=== PATIENT | male | born 1950 | race Caucasian/White ===

== ENCOUNTER 2017-11-14 06:40 | Observation (INO) ==
[2017-11-14] MEDS ORDERED: 0.9 % Sodium Chloride 1,000 ML IVC ONE (06:52)
[2017-11-14] MEDS ORDERED: Dexamethasone 4 MG/ML VIAL IVP ONE (06:52)
[2017-11-14 07:06] LABS: Basophils % 0.3 %; Eosinophils # 0.3 K/mcL (0.0-0.6); Eosinophils % 4.1 %; Immature Granulocytes % 0.5 % (0-4); Lymphocytes # 1.5 K/mcL (0.6-4.6); Lymphocytes % 23.5 %; Mean Corpuscular HGB Conc 34.7 g/dL (31.6-35.5); Mean Corpuscular Hemoglobin 33.4 pg (28.0-33.3); Mean Corpuscular Volume 96.3 fL (83.0-100.0); Mean Platelet Volume 8.6 fL (9.4-12.4); Monocytes # 0.6 K/mcL (0.0-1.3); Monocytes % 8.7 %; Neutrophils # 4.1 K/mcL (1.6-8.9); Platelet Count 233 K/mcL (140-400); Red Blood Count 5.09 M/mcL (4.19-5.50); Red Cell Distribution Width 13.5 % (11.5-14.5); Segmented Neutrophils % 62.9 %
[2017-11-14 07:31] LABS: BUN/Creatinine Ratio 20 (6-26); Blood Urea Nitrogen 24 mg/dL (8-23); Calcium 8.8 mg/dL (8.6-10.3); Carbon Dioxide 25 mEq/L (23-29); Chloride 106 mEq/L (98-107); Glucose 90 mg/dL (70-105); Osmolality,Calculated 286 (280-300); Sodium 136 mEq/L (136-145); Troponin I < 0.03 ng/mL (< 0.04); eGFR For Non-African Americans 59 (> 60)
--- NOTE | 2017-11-14 07:43 | Emergency Department Note ---
Disposition Clinical Impression: Angio-edema Qualifiers: Encounter type: initial encounter Qualified Code(s): T78.3XXA - Angioneurotic edema, initial encounter Disposition: Admitted As Inpatient Condition: Good Referrals: Rivka Chung CNP [Primary Care Provider] - Gabriel Mac [Family Provider] - Forms: ED Satisfaction Letter, Work/School Release Time of Disposition: 07:58 Allergic Reaction HPI - General Chief complaint: ED General Medical Stated complaint: "Swollen Tounge/Poss.Allergic Reaction" Time Seen by Provider: 11/14/17 06:52 Source: patient, family () Mode of arrival: ambulatory Limitations: no limitations Nursing Notes Reviewed: Yes Vital Signs Reviewed: Yes - History of Present Illness HPI Narrative: 67-year-old male history of hypertension presents emergency department was swollen tongue. He reports waken up around 4 o'clock this morning with a sensation on his right side of his tongue. He realizes right side of the tongue was swollen. He denies any difficulty swallowing or difficulty breathing. This is never happened before. He does take lisinopril and over the past month it was increased from 10 to 20 mg due to uncontrolled hypertension. He has been taken lisinopril for over the past 5 years. He denies any recent dental procedures. Denies any recent illness. Has not eaten or drinking anything this morning. He typically takes his lisinopril in the morning his last dose was over 24 hours ago, yesterday morning. No new foods or drinks. No new medications. Currently he is able to speak in full sentences with a slight muffled voice. It has not changed since being here. Pt Subjective Complaint: allergic reaction - Related Data Allergies Allergy/AdvReac Type Severity Reaction Status Date / Time No Known Allergies Allergy Verified 11/14/17 06:41 All systems ED: reviewed and negative except as stated. Review of Systems: As Per HPI Constitutional: Denies: fever, chills ENT ED: Reports: dysphagia. Denies: throat pain, dental pain Cardiovascular: Denies: chest pain Respiratory: Denies: dyspnea Gastrointestinal: Denies: abdominal pain, nausea, vomiting Past Medical History - Past Medical History Attestation: Yes The following information was validated with the patient. Source: patient Medical history: Reports: hypertension Psychiatric history: Reports: no psych history - Social History Smoking Status: Never smoker Alcohol use: Reports: none Drug use: Reports: none Physical Exam - General Limitations: no limitations General appearance: alert, in no apparent distress - Head Head exam: atraumatic, normocephalic, normal inspection - Eye Eye exam: Present: normal appearance, PERRL, EOMI. Absent: periorbital swelling - ENT ENT exam: normal exam, normal oropharynx, mucous membranes moist - Expanded ENT Exam External ear exam: Present: normal external inspection Nose exam: negative: rhinorrhea Mouth exam: Present: tongue elevation, tounge swelling (Asymmetrical right side swelling). Absent: drooling, trismus Teeth exam: Present: normal inspection, dental caries, other (No false teeth her dentures) - Neck Neck exam: Present: normal inspection, full ROM, trachea midline. Absent: tenderness, thyromegaly - Expanded Neck Exam Neck exam focused ED: Absent: anterior neck swelling - Chest Chest inspection: Present: normal inspection, symmetric chest wall rise - Respiratory Respiratory exam: Present: normal lung sounds bilaterally. Absent: respiratory distress, wheezes, stridor - Cardiovascular Cardiovascular exam: Present: regular rate, normal rhythm, normal heart sounds - Abdominal Exam Abdominal exam: Present: soft, Non-Tender. Absent: tenderness, distention, guarding, rebound, rigidity - Extremities Exam Extremities exam: Present: normal inspection, full ROM, normal capillary refill. Absent: tenderness, pedal edema - Neurological Exam Neurological exam: Present: alert, oriented X3 - Expanded Neurological Exam Patient oriented to: Present: person, place, time Coma Scale Eye Opening: Spontaneous Coma Scale Motor Response: Obeys Commands Coma Scale Verbal Response: Oriented Coma Scale Total: 15 - Psychiatric Psychiatric exam: Present: normal affect, normal mood - Skin Skin exam: Present: warm, dry, intact, normal color. Absent: rash, cyanosis, diaphoresis, erythema - Expanded Skin Exam Description: Absent: urticarial Course Course Narrative: Patient presents with concern for angioedema as he has tongue swelling and is on a DEUCE inhibitor. No prior history. He is on cardiac monitoring and continuous pulse oximetry. Good oxygen saturations. His airways intact at this time. He has been given Benadryl and steroids. We will continue to monitor him for any airway compromise check some labs and consult ENT for likely admission and observation. Impression is angioedema. - Consultations Consultation #1: Patient has been accepted for admission by the plug overwrap machine tender Dr. Khoury for angioedema and difficult airway. On reevaluation he continues to have good control of his secretions. Oxygen saturation remains in the upper 90s. He appears in no acute distress. No strider wheezing. No indication for intubation at this time. ENT, Dr. Dirk Tarango, has been consulted and is on board and aware the patient's admission. Time: 08:04 Vital Signs Temperature 97.6 F 11/14/17 06:41 Pulse Rate 55 11/14/17 06:41 Respiratory Rate 18 11/14/17 06:41 Blood Pressure 186/101 11/14/17 06:41 O2 Sat by Pulse Oximetry 96 11/14/17 06:41 Temperature 97.6 F 11/14/17 06:41 Pulse Rate 55 11/14/17 06:41 Respiratory Rate 18 11/14/17 06:41 Blood Pressure 186/101 11/14/17 06:41 O2 Sat by Pulse Oximetry 96 11/14/17 06:41 Oxygen Delivery Oxygen Delivery Room Air Allergic Reaction - MDM Narrative Medical decision making narrative: Patient was discussed with my attending physician who agrees with ED management and final disposition. They independently evaluated the patient. Please refer to their attestation to this encounter for additional information. This note was generated by [employer] voice recognition software and as a result grammatical or spelling errors may occur using this program. - Differential Diagnosis Differential Diagnosis: Likely: allergic reaction, angioedema - Medical Records Medical records reviewed: Yes I reviewed the patient's medical records. - Lab Data Lab results reviewed: Yes I reviewed the patient's lab results. Result diagrams: 11/14/17 06:57 11/14/17 06:57 Lab Results 11/14/17 11/14/17 11/14/17 Range/Units 06:57 06:57 06:57 WBC 6.6 (4.3-11.1) K/mcL RBC 5.09 (4.19-5.50) M/mcL Hgb 17.0 H (12.9-16.9) g/dL Hct 49.0 (37.5-50.1) % MCV 96.3 (83.0-100.0) fL MCH 33.4 H (28.0-33.3) pg MCHC 34.7 (31.6-35.5) g/dL RDW 13.5 (11.5-14.5) % Plt Count 233 (140-400) K/mcL MPV 8.6 L (9.4-12.4) fL Immature Gran % 0.5 (0-4) % Seg Neutrophils % 62.9 % Lymphocytes % 23.5 % Monocytes % 8.7 % Eosinophils % 4.1 % Basophils % 0.3 % Neutrophils # 4.1 (1.6-8.9) K/mcL Lymphocytes # 1.5 (0.6-4.6) K/mcL Monocytes # 0.6 (0.0-1.3) K/mcL Eosinophils # 0.3 (0.0-0.6) K/mcL Basophils # 0.0 (0.0-0.2) K/mcL Sodium 136 (136-145) mEq/L Potassium 4.0 (3.5-5.1) mEq/L Chloride 106 (98-107) mEq/L Carbon Dioxide 25 (23-29) mEq/L BUN 24 H (8-23) mg/dL Creatinine 1.23 (0.70-1.30) mg/dL Est GFR ( Amer) > 60 (> 60) Est GFR (Non-Af Amer) 59 L (> 60) BUN/Creatinine Ratio 20 (6-26) Glucose 90 (70-105) mg/dL Calculated Osmolality 286 (280-300) Calcium 8.8 (8.6-10.3) mg/dL Troponin I < 0.03 (< 0.04) ng/mL B-Natriuretic Peptide 38 (Less than 100) pg/mL - Radiology Data Radiology results reviewed: Yes I reviewed the patient's radiology results. Chest X-Ray 11/14/17 06:53 IMPRESSION: Trace left basilar airspace disease, favored to represent atelectasis. Mild cardiomegaly. D/ / Fabricio Sarmiento MD / Fabricio Sarmiento MD Interpreting Provider: Fabricio Sarmiento MD
--- NOTE | 2017-11-14 07:44 | Emergency Department Note ---
Disposition Clinical Impression: Angio-edema Qualifiers: Encounter type: initial encounter Qualified Code(s): T78.3XXA - Angioneurotic edema, initial encounter Disposition: Admitted As Inpatient Condition: Good Referrals: Rivka Chung CNP [Primary Care Provider] - Gabriel Mac [Family Provider] - Forms: ED Satisfaction Letter, Work/School Release Time of Disposition: 07:45 General Adult HPI - General Chief complaint: ED General Medical Stated complaint: "Swollen Tounge/Poss.Allergic Reaction" Time Seen by Provider: 11/14/17 06:52 Source: patient Limitations: no limitations - History of Present Illness Pain Scale: 0 - Related Data Allergies Allergy/AdvReac Type Severity Reaction Status Date / Time No Known Allergies Allergy Verified 11/14/17 06:41 Past Medical History - Past Medical History Medical history: Reports: hypertension Psychiatric history: Reports: no psych history - Social History Smoking Status: Never smoker Alcohol use: Reports: none Drug use: Reports: none Physical Exam - General Limitations: no limitations General appearance: alert Course Vital Signs Temperature 97.6 F 11/14/17 06:41 Pulse Rate 55 11/14/17 06:41 Respiratory Rate 18 11/14/17 06:41 Blood Pressure 186/101 11/14/17 06:41 O2 Sat by Pulse Oximetry 96 11/14/17 06:41 Temperature 97.6 F 11/14/17 06:41 Pulse Rate 55 11/14/17 06:41 Respiratory Rate 18 11/14/17 06:41 Blood Pressure 186/101 11/14/17 06:41 O2 Sat by Pulse Oximetry 96 11/14/17 06:41 Oxygen Delivery Oxygen Delivery Room Air Medical Decision Making - Lab Data Result diagrams: 11/14/17 06:57 11/14/17 06:57 Lab Results 11/14/17 11/14/17 11/14/17 Range/Units 06:57 06:57 06:57 WBC 6.6 (4.3-11.1) K/mcL RBC 5.09 (4.19-5.50) M/mcL Hgb 17.0 H (12.9-16.9) g/dL Hct 49.0 (37.5-50.1) % MCV 96.3 (83.0-100.0) fL MCH 33.4 H (28.0-33.3) pg MCHC 34.7 (31.6-35.5) g/dL RDW 13.5 (11.5-14.5) % Plt Count 233 (140-400) K/mcL MPV 8.6 L (9.4-12.4) fL Immature Gran % 0.5 (0-4) % Seg Neutrophils % 62.9 % Lymphocytes % 23.5 % Monocytes % 8.7 % Eosinophils % 4.1 % Basophils % 0.3 % Neutrophils # 4.1 (1.6-8.9) K/mcL Lymphocytes # 1.5 (0.6-4.6) K/mcL Monocytes # 0.6 (0.0-1.3) K/mcL Eosinophils # 0.3 (0.0-0.6) K/mcL Basophils # 0.0 (0.0-0.2) K/mcL Sodium 136 (136-145) mEq/L Potassium 4.0 (3.5-5.1) mEq/L Chloride 106 (98-107) mEq/L Carbon Dioxide 25 (23-29) mEq/L BUN 24 H (8-23) mg/dL Creatinine 1.23 (0.70-1.30) mg/dL Est GFR ( Amer) > 60 (> 60) Est GFR (Non-Af Amer) 59 L (> 60) BUN/Creatinine Ratio 20 (6-26) Glucose 90 (70-105) mg/dL Calculated Osmolality 286 (280-300) Calcium 8.8 (8.6-10.3) mg/dL Troponin I < 0.03 (< 0.04) ng/mL B-Natriuretic Peptide 38 (Less than 100) pg/mL Attestation Statement - Attestation Attestation: I examined this patient and my medical decision-making was reviewed with the Resident Physician. I agree with the documented findings, disposition and treatment plan as described except to the extent set forth below. 67 year old male presents to the ED with complaints of right sided tongue swelling. Reynaldo is currenlty on lisinopril and most recently increased his dose and then started to notice increased in swelling in his right side of the tongue without evidenc of difficulty in breathing, hives, or vomitting. WE will consult with ENT and then admit to medicnie. Reynaldo was accepted as sign out from night team (Yovany/Wan)
[2017-11-14] MEDS ORDERED: Naloxone 0.4 MG/ML INJ IVP PRN (08:40)
[2017-11-14] MEDS ORDERED: 0.9 % Sodium Chloride 1,000 ML IVC SCH (08:45)
--- NOTE | 2017-11-14 11:21 | Pulmonology History & Physical ---
<BalajimalloryBear Soliz - Last Filed: 11/14/17 11:19> Date of Encounter: 11/14/17 Time of Encounter: 11:19 Assessment and Plan (1) Angio-edema Current visit: Yes Status: Acute Likely secondary to DEUCE inhibitor use. Edema is isolated to the right side of the tongue only. No facial swelling or lip swelling noted. Oropharynx is patent, patient is maintaining his airway and handling his secretions without difficulty. Patient has adequate oxygenation on room air. DEUCE inhibitor will be discontinued permanently. We will treat with Solu-Medrol 40mg every 6h, famotidine 20 mg twice a day, Benadryl 50 mg every 8 hours. We will monitor closely in the ICU to monitor his airway status in case his angioedema regresses and the need for urgent airway protection becomes necessary. ENT was been consulted from the emergency department with pressure the recommendations. I spoke with the patient at length and made it clear that he should avoid all DEUCE inhibitor's and our medications in the future Qualifiers: Encounter type: initial encounter Qualified Code(s): T78.3XXA - Angioneurotic edema, initial encounter (2) Hypertension Current visit: Yes Status: Acute Had been on lisinopril 20 mg daily. This is being discontinued due to angioedema as discussed above. Patient is currently nothing by mouth due to concerns for developing airway compromise so we will treat with hydralazine 10 milligrams every 6 when necessary. Once patient is able to take by mouth medications will transition to by mouth antihypertensives. Encourage outpatient follow-up. Qualifiers: Hypertension type: essential hypertension Qualified Code(s): I10 - Essential (primary) hypertension (3) DVT prophylaxis Current visit: Yes Status: Acute Lovenox 40 mg subcutaneous daily. History of Present Illness Chief complaint: Tongue swelling HPI: Mr. Tejada is a 67 year old male with history of hypertension who presents with tongue swelling. He states he was awoken from sleep at approximately 4 AM with swelling of the right side of his tongue. He reports that this progressed over the next couple hours and this caused him to present to the emergency department. He states he has never had anything like this before. He had no issues last night before going to bed. He feels like he is having trouble controlling his saliva somewhat but denies any difficulty breathing, drooling. Patient states lisinopril on a daily basis and recently had his dose increased to 20 mg. He states he has been on this for approximately 5 years. Denies any other previous episodes of facial swelling. He denies any other swelling including any other facial swelling, no lip swelling, eye swelling. He has fever, chills, cough, congestion, chest pain, headache, confusion, abdominal pain, nausea, vomiting, diarrhea, dysuria. Past Med Surg Social Fam HX - Past Medical History Medical history: hypertension Psychiatric history: no psych history - Past Surgical History Additional surgical history: back sx, - Social History Smoking Status: Never smoker Alcohol use: none Drug use: none Medications and Allergies Lisinopril [Zestril] 20 mg PO DAILY 11/14/17 [History] 3 Allergy/AdvReac Type Severity Reaction Status Date / Time DEUCE Inhibitors Allergy Severe Swelling Verified 11/14/17 14:31 of Lip/Tongue/Throat All Systems: The remainder of the systems were reviewed and are negative - Constitutional Constitutional: no chills, no fever(s) - EENT Nose, mouth and throat: tongue swelling, no epistaxis, no facial pain, no nasal congestion, no nasal discharge, no neck pain, no sinus pressure, no throat swelling - Cardiovascular Cardiovascular: no chest pain, no dyspnea, no edema - Respiratory Respiratory: no cough, no dyspnea, no dyspnea on exertion, no stridor, no pain on inspirtation, no chest congestion, no excessive phlegm production, no change in phlegm color - Gastrointestinal Gastrointestinal: no abdominal pain, no diarrhea, no nausea, no vomiting - Genitourinary Genitourinary: no dysuria - Musculoskeletal Musculoskeletal: no weakness, no numbness, no stiffness - Neurological Neurological: no numbness, no syncope, no tingling - Hematologic/Lymphatic Hematologic/Lymphatic: no easy bleeding, no easy bruising - Allergic/Immunologic Allergic/Immunologic: tongue swelling, no throat swelling, no itchy eyes, no seasonal rhinorrhea, no uticaria, no wheezing, no GI upset with certain foods, no lip swelling Physical Examination Vital Signs: Vital Signs, Last 4 Hours Pulse Resp BP Pulse Ox 11/14/17 11:00 58 11/14/17 09:00 53 151/92 94 11/14/17 08:32 18 166/111 General appearance: no acute distress Eyes: nonicteric ENT: oropharynx moist, other (Edema to right side of tongue, small ulceration on the left side of tongue) Neck: supple Effort: normal Auscultation: bilateral: clear Cardiovascular: regular rate and rhythm Gastrointestinal: normoactive bowel sounds, soft, non-tender, non-distended Extremities: no cyanosis, no edema, no clubbing normal mental status, non-focal exam mood appropriate, affect normal Results - Laboratory Findings CBC and BMP: 11/14/17 06:57 11/14/17 06:57 Abnormal lab findings: Abnormal lab results Hgb 17.0 g/dL (12.9-16.9) H 11/14/17 06:57 MCH 33.4 pg (28.0-33.3) H 11/14/17 06:57 MPV 8.6 fL (9.4-12.4) L 11/14/17 06:57 BUN 24 mg/dL (8-23) H 11/14/17 06:57 Est GFR (Non-Af Amer) 59 (> 60) L 11/14/17 06:57 <Leonardo Khoury S - Last Filed: 11/14/17 15:09> Date of Encounter: 11/14/17 History of Present Illness HPI: Mr. Tejada is a 67 year old male All Systems: The remainder of the systems were reviewed and are negative Physical Examination Vital Signs: Vital Signs, Last 4 Hours Pulse Resp BP Pulse Ox 11/14/17 14:00 62 18 125/83 93 11/14/17 13:00 64 18 141/96 94 11/14/17 12:00 66 18 151/97 96 Results - Laboratory Findings CBC and BMP: 11/14/17 06:57 11/14/17 06:57 Abnormal lab findings: Abnormal lab results Hgb 17.0 g/dL (12.9-16.9) H 11/14/17 06:57 MCH 33.4 pg (28.0-33.3) H 11/14/17 06:57 MPV 8.6 fL (9.4-12.4) L 11/14/17 06:57 BUN 24 mg/dL (8-23) H 11/14/17 06:57 Est GFR (Non-Af Amer) 59 (> 60) L 11/14/17 06:57 - Attending Attestation I saw and evaluated this patient and my medical decision-making was reviewed with the Resident Physician. I agree with the documented findings, disposition and treatment plan as described except to the extent set forth below. We independently had [id number] contact with the patient Patient seen and examined at bedside Labs, radiology, chart personally reviewed. Management was reviewed during multidisciplinary critical care rounds. [employer]: Patient is conscious and oriented 3 Pulm: Patient will oxygenation and ventilation. Has no clinical evidence of airway compromise has Swelling Secondary to Possible DEUCE Inhibitor As Suggestive of Angioneurotic Edema to Continue Steroids H2 [place] and Benadryl. Cards: Is hemodynamically stable FEN-GI: Nothing by mouth for now okay for IV fluids maintenance Renal: Labs and output were reviewed active infection issues ID: Heme/Onc: Prophylaxis Endo: Glucose Monitored Dispo: Will need to change to some other class of ant-hypertensive CODE:Full Code
[2017-11-14] MEDS ORDERED: MethylPREDNISolone 40 MG/ML VIAL IVP SCH (12:00)
--- NOTE | 2017-11-14 13:07 | ENT - Consult Note ---
Date of Encounter: 11/14/17 Time of Encounter: 12:30 Assessment and Plan (1) Angio-edema Current Visit: Yes Status: Acute significant improvement since initiation of steroids and antihistamines. no need for airway intervention, edema is improving. If his condition worsens in any way please re-consult and I would be happy to assist in any way I can. Qualifiers: Encounter type: initial encounter Qualified Code(s): T78.3XXA - Angioneurotic edema, initial encounter History of Present Illness Consult date: 11/14/17 Reason for ENT Consult: airway complication (Consulted from the ER about this 67 year old male with tongue swelling thought to be angioedema. He is on an jeremy inhibitor. His speech was slurred, but he was able to handle his secretions and was not in airway distress. It was localized to the right side of the tongue. since he was admitted to the ICU this morning, he recieved solumedrol, famotidine and benadryl and the swelling has significantly improved. His speech is no longer slurred.) Past Med Surg Social Fam HX - Past Medical History Medical history: hypertension Psychiatric history: no psych history - Past Surgical History Additional surgical history: back sx, - Social History Smoking Status: Never smoker Alcohol use: none Drug use: none Medications and Allergies Lisinopril [Zestril] 20 mg PO DAILY 11/14/17 [History] 3 Allergy/AdvReac Type Severity Reaction Status Date / Time No Known Allergies Allergy Verified 11/14/17 06:41 ENT - ROS - EENT Nose, mouth and throat: no abnormal hearing, no change in voice, no dysphagia - Respiratory no dyspnea, no wheezing, no stridor, no excessive phlegm production ENT Exam Initial Vital Signs Temp Pulse Resp BP Pulse Ox 97.6 F 55 18 186/101 96 11/14/17 06:41 11/14/17 06:41 11/14/17 06:41 11/14/17 06:41 11/14/17 06:41 - General physical appearance well developed, well nourished, no distress, no pain - ENT normal pinna, normal nares, no congestion, atraumatic, normocephalic, CN 2-12 grossly intact, Other (slight asymmetry of oral tongue (R slightly edematous in comparison to the left). base of tongue is normal.) - Neck no masses, trachea midline - Respiratory normal expansion, normal respiratory effort Exam Initial Vital Signs Temp Pulse Resp BP Pulse Ox 97.6 F 55 18 186/101 96 11/14/17 06:41 11/14/17 06:41 11/14/17 06:41 11/14/17 06:41 11/14/17 06:41 Results - Labs 11/14/17 06:57 11/14/17 06:57 Abnormal lab results Hgb 17.0 g/dL (12.9-16.9) H 11/14/17 06:57 MCH 33.4 pg (28.0-33.3) H 11/14/17 06:57 MPV 8.6 fL (9.4-12.4) L 11/14/17 06:57 BUN 24 mg/dL (8-23) H 11/14/17 06:57 Est GFR (Non-Af Amer) 59 (> 60) L 11/14/17 06:57 All other labs normal. Consult Discharge Plan - Plan Referrals: Rivka Chung CNP [Primary Care Provider] - Gabriel Mac [Family Provider] -
[2017-11-14] MEDS ORDERED: Ibuprofen 400 MG TABLET PO PRN (14:36)
[2017-11-14] MEDS: amLODIPine 5 MG TABLET PO SCH (14:44)
[2017-11-14] MEDS: Famotidine 20 MG/2 ML VIAL IVP SCH (17:00)
--- NOTE | 2017-11-14 17:18 | Electrocardiograph Report ---
[address] [place] [address] Test Date: 2017-11-14 Pat Name: Buck Tejada Department: 104 Room: [facility] Gender: M [employer] Laborer: ERASMO : 1950 Requested By: Leonardo Khoury Order Number: [id number] Reading MD: Edmond Elena Measurements Intervals [place] Rate: 57 P: 49 VA: 189 QRS: 15 QRSD: 117 T: 28 QT: 440 QTc: 433 Interpretive Statements SINUS BRADYCARDIA MODERATE INTRAVENTRICULAR CONDUCTION DELAY Electronically Signed On 11-14-2017 17:16:39 EDT by Edmond Elena
[2017-11-14] MEDS: MethylPREDNISolone 40 MG/ML VIAL IVP SCH (19:57)
[2017-11-15 04:58] LABS: Hematocrit 49.7 % (37.5-50.1); Hemoglobin 17.6 g/dL (12.9-16.9); Immature Granulocytes % 0.4 % (0-4); Lymphocytes # 0.9 K/mcL (0.6-4.6); Lymphocytes % 10.2 %; Mean Corpuscular HGB Conc 35.4 g/dL (31.6-35.5); Mean Corpuscular Hemoglobin 33.7 pg (28.0-33.3); Mean Platelet Volume 8.8 fL (9.4-12.4); Monocytes # 0.3 K/mcL (0.0-1.3); Neutrophils # 7.8 K/mcL (1.6-8.9); Platelet Count 262 K/mcL (140-400); Red Blood Count 5.23 M/mcL (4.19-5.50); Red Cell Distribution Width 13.2 % (11.5-14.5); Segmented Neutrophils % 86.4 %
[2017-11-15] MEDS: MethylPREDNISolone 40 MG/ML VIAL IVP SCH (05:06)
[2017-11-15] MEDS: Famotidine 20 MG/2 ML VIAL IVP SCH (05:06)
[2017-11-15 05:11] LABS: BUN/Creatinine Ratio 20 (6-26); Blood Urea Nitrogen 22 mg/dL (8-23); Calcium 8.7 mg/dL (8.6-10.3); Carbon Dioxide 21 mEq/L (23-29); Chloride 108 mEq/L (98-107); Glucose 121 mg/dL (70-105); Magnesium 2.2 mg/dL (1.6-2.6); Osmolality,Calculated 287 (280-300); Potassium 4.4 mEq/L (3.5-5.1); Sodium 136 mEq/L (136-145); eGFR For Non-African Americans > 60 (> 60)
[2017-11-15] MEDS ORDERED: *HR* Enoxaparin 40 MG/0.4 ML SYRINGE SQ SCH (06:00)
--- NOTE | 2017-11-15 06:31 | Discharge Summary ---
<Bear Meredith - Last Filed: 11/15/17 06:28> - NOTES TO OUTPATIENT PROVIDER Notes to Outpatient Provider: Patient presented with angioedema, JAVED inhibitors should be avoided for the rest of his life Date of Encounter: 11/15/17 Time of Encounter: 06:31 - Discharge Diagnosis (1) Angio-edema Priority: Primary Status: Acute Qualifiers: Encounter type: initial encounter Qualified Code(s): T78.3XXA - Angioneurotic edema, initial encounter (2) Hypertension Priority: Secondary Status: Chronic Qualifiers: Hypertension type: essential hypertension Qualified Code(s): I10 - Essential (primary) hypertension - Discharge Medications Prescriptions: amLODIPine [Norvasc] 10 mg PO DAILY #30 tablet Home Medications: amLODIPine [Norvasc] 10 mg PO DAILY #30 tablet 11/15/17 [Rx] Allergies/Adverse Reactions: 3 Allergy/AdvReac Type Severity Reaction Status Date / Time JAVED Inhibitors Allergy Severe Swelling Verified 11/14/17 14:31 of Lip/Tongue/Throat Labs on day of discharge: Labs from last 24 hours 11/15/17 11/15/17 11/14/17 04:38 04:38 10:18 WBC 9.1 RBC 5.23 Hgb 17.6 H Hct 49.7 MCV 95.0 MCH 33.7 H MCHC 35.4 RDW 13.2 Plt Count 262 MPV 8.8 L Immature Gran % 0.4 Seg Neutrophils % 86.4 Lymphocytes % 10.2 Monocytes % 3.0 Eosinophils % 0.0 Basophils % 0.0 Neutrophils # 7.8 Lymphocytes # 0.9 Monocytes # 0.3 Eosinophils # 0.0 Basophils # 0.0 Sodium 136 Potassium 4.4 Chloride 108 H Carbon Dioxide 21 L BUN 22 Creatinine 1.11 Est GFR ( Amer) > 60 Est GFR (Non-Af Amer) > 60 BUN/Creatinine Ratio 20 Glucose 121 H POC Glucose 88 Calculated Osmolality 287 Calcium 8.7 Magnesium 2.2 Date of admission: 11/14/17 08:11 Primary care physician: Rivka Chung Discharging clinician: Bear Meredith Anticipated date of discharge: 11/15/17 - Patient Status Disposition: Home, Self-Care Condition: Good Functional capacity at discharge: independent ambulation Overall status at discharge: patient is back to baseline - Discharge Instructions Follow Up With: Jennifer Romero [Resident] - 11/21/17 3:00 pm Additional Instructions: Please discontinue lisinopril and avoid lisinopril or any other similar medications for the rest of her life. Restart amlodipine (Norvasc) 10 mg daily. Please follow-up with Dr. Romero as scheduled. Please return for any new or worsening symptoms. - Diet and Activity Activity: increase activity as tolerated Diet: advance to your usual diet - Hospital Course Hospital course: Mr. Tejada is a 67 year old male with history of hypertension on lisinopril who presented with tongue swelling. This is felt to be related to angioedema in the setting of JAVED inhibitor use. Patient was admitted to the ICU for close monitoring due to concerns for possible airway compromise given the angioedema and tongue swelling. Patient was monitored closely in his symptoms rapidly improved. He never had any signs of impending airway compromise and remained stable on room air throughout his entire stay. Approximately 12 hours after admission the patient's angioedema had completely resolved. Patient was monitored for 24 hours and treated with steroids and his symptoms has resolved completely. It was stressed to the patient that he should avoid Javed inhibitors for the rest of his life. Patient will be discharged home in stable condition. - Time Spent with Patient Total time spent providing and/or coordinating discharge services: Physical Examination Vital Signs: Vital Signs, Last 4 Hours Temp Pulse Resp BP Pulse Ox 11/15/17 05:51 62 12 136/86 97 11/15/17 05:00 66 12 136/86 97 11/15/17 04:19 97.8 F 11/15/17 03:00 61 General appearance: no acute distress ENT: oropharynx moist, other (No tongue or oral swelling/edema noted) Effort: normal Inspection: normal Auscultation: bilateral: clear Cardiovascular: regular rate and rhythm Gastrointestinal: normoactive bowel sounds, soft, non-tender Extremities: no cyanosis, no edema, no clubbing normal mental status, non-focal exam <Leonardo Khoury - Last Filed: 11/15/17 14:31> Date of Encounter: 11/15/17 Labs on day of discharge: Labs from last 24 hours 11/15/17 11/15/17 11/14/17 04:38 04:38 10:18 WBC 9.1 RBC 5.23 Hgb 17.6 H Hct 49.7 MCV 95.0 MCH 33.7 H MCHC 35.4 RDW 13.2 Plt Count 262 MPV 8.8 L Immature Gran % 0.4 Seg Neutrophils % 86.4 Lymphocytes % 10.2 Monocytes % 3.0 Eosinophils % 0.0 Basophils % 0.0 Neutrophils # 7.8 Lymphocytes # 0.9 Monocytes # 0.3 Eosinophils # 0.0 Basophils # 0.0 Sodium 136 Potassium 4.4 Chloride 108 H Carbon Dioxide 21 L BUN 22 Creatinine 1.11 Est GFR ( Amer) > 60 Est GFR (Non-Af Amer) > 60 BUN/Creatinine Ratio 20 Glucose 121 H POC Glucose 88 Calculated Osmolality 287 Calcium 8.7 Magnesium 2.2 Date of admission: 11/14/17 08:11 Primary care physician: Rivka Chung - Hospital Course Hospital course: I agree with the above documentation which was done by the resident - Time Spent with Patient Total time spent providing and/or coordinating discharge services:
[2017-11-15 07:41] VITALS: BP 138/98
[2017-11-15] MEDS: amLODIPine 5 MG TABLET PO SCH (07:44)
== END 2017-11-15 08:32 | disposition home or self-care (01) ==
LOC: ICNU 06:40 → EMEROO 06:40 → ICNU 10:10
PROVIDERS: ADMIT Internal Medicine Pulmonary Disease; ATTEND Internal Medicine Pulmonary Disease